=== PATIENT | female | born 1995 | race Caucasian/White ===

== ENCOUNTER 2021-06-22 20:02 | Emergency (ER) | payer OTHER ==
[~2021-06-22] VITALS: Ht 157.5 cm; Wt 54.4 kg
[2021-06-22] MEDS ORDERED: ZOLOFT50 M1 PO (20:14)
[2021-06-22] MEDS ORDERED: BIRTH CONTROL (20:14)
[2021-06-22 21:15] LABS: ABSOLUTE BASOPHILS 0.1 thou/uL (0.0-0.2); ABSOLUTE EOSINOPHILS 0.3 thou/uL (0.0-0.7); ABSOLUTE LYMPHOCYTES 2.3 thou/uL (0.8-5.3); ABSOLUTE MONOCYTES 0.5 thou/uL (0.0-1.2); ABSOLUTE NEUTROPHILS 2.7 thou/uL (1.6-8.1); BASOPHILS 1.1 %; HEMATOCRIT 35.7 % (37.0-47.0); LYMPHOCYTES 38.2 %; MCH 32.8 pg (26.0-34.0); MCHC 33.5 g/dL (28.0-37.0); MONOCYTES 9.3 %; MPV 8.1 fl. (7.2-11.1); NUCLEATED RBCS 0 /100WBC; PLATELET COUNT* 308 thou/uL (150-400); POLYS 46.4 %; RBC 3.64 mil/uL (4.20-5.00); RDW-CV 13.1 % (10.5-14.5); WBC 5.9 thou/uL (4.0-11.0)
[2021-06-22 21:20] LABS: CALCIUM 8.5 mg/dL (8.5-10.1); CREATININE 0.9 mg/dL (0.6-1.3); POTASSIUM 3.8 mmol/L (3.5-5.1)
[2021-06-22 21:25] LABS: ALBUMIN 3.7 g/dL (3.4-5.0); TOTAL BILIRUBIN 0.2 mg/dL (<0.1-1.0); TOTAL PROTEIN 6.7 g/dL (6.4-8.2)
[2021-06-22 21:39] VITALS: BP 90/59
--- NOTE | 2021-06-23 15:42 | EKG ---
[place] [address] ELECTROCARDIOGRAM REPORT Name: CRISTIAN HA Room: [facility]#: [id number] Admission: 06/22/21 Attend Phys: Discharge: 06/22/21 Date of : 89 Date of Service: 06/22/212004 Report #: [id number] THIS REPORT FOR: //name// [facility] ED Test Date: 2021-06-22 Test Time: 20:05:58 Pat Name: CRISTIAN HA Department: Room: Gender: [id number] Architect: : [id number] Requested By: Shayne Bautista Order Number: [id number] MD: Tio Hanna Measurements Intervals [place] Rate: 74 P: 26 AL: 130 QRS: 52 QRSD: 76 T: 56 QT: 379 QTc: 421 Interpretive Statements Sinus rhythm Atrial premature complex Baseline wander in lead(s) II,III,aVF,V6 No previous ECG available for comparison Electronically Signed On 06-23-2021 15:42:31 CDT by Tio Hanna [email or web address] <ELECTRONICALLY SIGNED> By: Tio Hanna MD, FACC 06/23/21 1542 04 04 Tio Hanna MD, FAC /EPI
== END 2021-06-22 21:40 | disposition home or self-care (01) ==
LOC: M.ERS 20:02
PROVIDERS: Physician Assistant
DX: R07.89 Other chest pain (principal); Z20.822 Contact with and (suspected) exposure to COVID-19; J45.909 Unspecified asthma, uncomplicated; Z79.899 Other long term (current) drug therapy; Z88.5 Allergy status to narcotic agent